=== PATIENT | female | born 1955 | race Caucasian/White ===

== ENCOUNTER 2017-09-07 13:56 | Emergency (ER) | payer OTHER ==
[~2017-09-07] VITALS: Ht 162.6 cm; Wt 136.1 kg
[~2017-09-07 13:56] MED LIST: CEPH500 PO; CLIN150 PO; CODGUAEL PO; ERYT333ERA PO; HYDACE5 PO; Norco 5-325 Ta1 EACH PO; PSEU120ER PO; TRAM50 PO
[2017-09-07] MEDS ORDERED: Norco 5-325 Ta1 EACH PO (14:37)
== END 2017-09-07 15:35 | disposition home or self-care (01) ==
LOC: ER 13:56
DX: S42.201A Unspecified fracture of upper end of right humerus, initial encounter for closed fracture (principal); W01.198A Fall on same level from slipping, tripping and stumbling with subsequent striking against other object, initial encounter
CPT/HCPCS: 29105; 73060; 96374; 96376; 99284; J3010

== ENCOUNTER 2018-01-15 11:35 | Emergency (ER) | payer OTHER ==
[~2018-01-15] VITALS: Ht 165.1 cm; Wt 145.2 kg
[~2018-01-15 11:35] MED LIST changes: +BALANCED B-100100 MG PO; +DICL75ER PO; +ERGO400 PO; +FURO20 PO; +Klor-Con 1010 MEQ PO; +OXYC5 PO; +TIZANIDINE HCL2 MG PO
[2018-01-15] MEDS ORDERED: Norco 5-325 Ta1 EACH PO (13:38)
== END 2018-01-15 13:52 | disposition home or self-care (01) ==
LOC: ER 11:35
DX: M54.32 Sciatica, left side (principal); F17.200 Nicotine dependence, unspecified, uncomplicated; Z88.6 Allergy status to analgesic agent; Z88.0 Allergy status to penicillin; Z79.899 Other long term (current) drug therapy
CPT/HCPCS: 96372; 99283; J1885

== ENCOUNTER 2019-06-03 14:22 | Observation (INO) | payer OTHER ==
[~2019-06-03] VITALS: Ht 162.6 cm; Wt 145.2 kg
[2019-06-03] MEDS ORDERED: LOVA20 PO (14:51)
[2019-06-03] MEDS ORDERED: DICL75ER PO (14:57)
[2019-06-03 16:03] LABS: BASOPHILS ABSOLUTE AUTO 0.07 K/mm3 (0.00-0.23); BASOPHILS PERCENT AUTO 1 % (0-2); EOSINOPHILS ABSOLUTE AUTO 0.11 K/mm3 (0.00-0.68); EOSINOPHILS PERCENT AUTO 1 % (0-6); Hematocrit 45.3 % (33.0-51.0); Hemoglobin 14.9 g/dL (11.5-16.0); IMMATURE GRAN ABSOLUTE AUTO 0.09 K/mm3 (0.00-0.10); IMMATURE GRAN PERCENT AUTO 1 % (0-1); LYMPHOCYTES ABSOLUTE AUTO 2.25 K/mm3 (0.84-5.20); LYMPHOCYTES PERCENT AUTO 20 % (21-46); MONOCYTES ABSOLUTE AUTO 0.78 K/mm3 (0.16-1.47); MONOCYTES PERCENT AUTO 7 % (4-13); Mean Corpuscular HGB 30.4 pg (26.0-34.0); Mean Corpuscular HGB Conc 32.9 g/dL (31.5-36.5); Mean Corpuscular Volume 92 fL (80-100); Mean Platelet Volume 9.9 fL (9.1-12.4); NEUTROPHILS ABSOLUTE AUTO 8.03 K/mm3 (1.96-9.15); NEUTROPHILS PERCENT AUTO 71 % (41-73); Platelet Count 186 K/mm3 (150-400); RDW Coefficient Variation 14.1 % (11.7-14.2); RDW Standard Deviation 47.7 fL (35.1-46.3); White Blood Cell Count 11.33 K/mm3 (4.00-11.30)
[2019-06-03 16:12] LABS: Source, Urine Clean Catch
[2019-06-03 16:20] LABS: Alanine Aminotransfer (ALT/SGP 38 U/L (12-78); Albumin, Blood 3.3 g/dL (3.4-5.0); Albumin/Globulin Ratio 0.8 (0.8-1.8); Alk Phos 87 U/L (50-136); Anion Gap 8 mmol/L (6-16); Aspartate Aminotrans (AST/SGOT 28 U/L (12-37); Bilirubin, Total 0.5 mg/dL (0.1-1.0); Blood Urea Nitrogen 10 mg/dL (8-24); Bun/Creatinine Ratio 15.8 (12.0-20.0); CO2, Blood 26 mmol/L (21-32); Calcium, Blood 8.6 mg/dL (8.5-10.1); Chloride, Blood 102 mmol/L (98-108); Creatinine, Blood 0.63 mg/dL (0.40-1.00); Globulin, Blood 3.9 g/dL (2.2-4.0); Glomerular Filtration Rate >60 (60-); Glucose, Blood 80 mg/dL (70-99); Potassium, Blood 3.6 mmol/L (3.5-5.5); Sodium, Blood 136 mmol/L (136-145); Total Protein, Blood 7.2 g/dL (6.4-8.2)
[2019-06-03 16:24] LABS: Appearance, Urine Hazy (Clear); Bilirubin, Urine Neg (Neg); Blood, Urine 2+ (Neg); Color, Urine Yellow (P-Yellow); Glucose Qualitative, Urine Neg (Neg); Ketones, Urine 4+ (Neg); Leukocyte Esterase, Urine Neg (Neg); Nitrite, Urine Neg (Neg); Protein, Urine 1+ (Neg); Urobilinogen, Urine NORM (Normal)
[2019-06-03 16:37] LABS: Bacteria Mod /hpf; Squamous Epithelial Cells Mod /hpf (Few)
--- NOTE | 2019-06-03 21:17 | NUR ---
RFA 20G SL, PATENT, SITE WNL.
--- NOTE | 2019-06-04 03:13 | NUR ---
63 YR OLD FEMALE WAS ADMITTED TO THE FLOOR LAST PM FROM THE ED WITH A DX OF NEAR PERFORATION OF BOWEL, SECONDARY TO ULCER LOCATED PROXIMAL DUODENUM. ALERT AND ORIENTED. ABLE TO AMBULATE UP AD LYDIA. PLACED ON CONTACT PRECAUTIONS UNTIL GI PANEL COMPLETED. MD TO CONSULATAION WAS DONE PRIOR TO ADMITTANCE TO UNIT AND IS CURRENTLY WATER/ICE CHIPS PO UNTIL 0800 FOR PROCEDURE. (SEE MD NOTATIONS). IVF OF NS AT 75 ML/HR INFUSING AND A PROTONIX DRIP AT 10 ML/HR INTO ANOTHER IV SITE OF RIGHT FA. ORIENTED TO USE OF CALL LIGHT. CALL LIGHT IN REACH.
[2019-06-04 05:14] LABS: Hemoglobin 12.7 g/dL (11.5-16.0); Mean Corpuscular HGB 30.5 pg (26.0-34.0); Mean Corpuscular HGB Conc 32.6 g/dL (31.5-36.5); Mean Corpuscular Volume 94 fL (80-100); Mean Platelet Volume 9.8 fL (9.1-12.4); Platelet Count 228 K/mm3 (150-400); RDW Coefficient Variation 14.1 % (11.7-14.2); RDW Standard Deviation 48.8 fL (35.1-46.3); Red Blood Cell Count 4.16 M/mm3 (3.80-5.20)
[2019-06-04 05:35] LABS: Alanine Aminotransfer (ALT/SGP 32 U/L (12-78); Albumin, Blood 2.8 g/dL (3.4-5.0); Albumin/Globulin Ratio 0.8 (0.8-1.8); Alk Phos 76 U/L (50-136); Anion Gap 5 mmol/L (6-16); Aspartate Aminotrans (AST/SGOT 24 U/L (12-37); Bilirubin, Total 0.6 mg/dL (0.1-1.0); Blood Urea Nitrogen 9 mg/dL (8-24); Bun/Creatinine Ratio 15.9 (12.0-20.0); CO2, Blood 27 mmol/L (21-32); Calcium, Blood 8.3 mg/dL (8.5-10.1); Chloride, Blood 107 mmol/L (98-108); Creatinine, Blood 0.57 mg/dL (0.40-1.00); Globulin, Blood 3.3 g/dL (2.2-4.0); Glomerular Filtration Rate >60 (60-); Glucose, Blood 80 mg/dL (70-99); Potassium, Blood 3.5 mmol/L (3.5-5.5); Sodium, Blood 139 mmol/L (136-145); Total Protein, Blood 6.1 g/dL (6.4-8.2)
--- NOTE | 2019-06-04 18:50 | NUR ---
SHIFT SUMMARY. A&OX4, INDEPENDENT IN ROOM, PLEASANT AND COOPERATIVE. PT DENIES PAIN, SOB, N/V. ENDOSCOPY CANCELLED TODAY, THIS RN WAS NOTIFIED BY DR. HILL THAT THE RISK FOR PERFORATION AND OTHER COMPLICATIONS WAS TOO GREAT PER DR. DEVRIES, PT NOTIFIED. PT STILL WITH NO BM TO SEND TO LAB. CONTINUES WITH PROTONIX GTT AND CLEAR LIQUIDS. FAMILY AT BEDSIDE INTERMITENTLY DURING SHIFT.
--- NOTE | 2019-06-05 07:26 | NUR ---
SHIFT SUMMARY PATIENT ALERT AND ORIENTED. BOTH IVS IN RIGHT ARM INFILTRATED. TWO NEW IVS PLACED IN PATIENT'S LEFT FOREARM AND FLUSHED. PATIENT HAD NO COMPLAINTS OF PAIN. BED IN LOWEST POSITION WITH WHEELS LOCKED. CALL LIGHT WITHIN REACH. REPORT GIVEN TO ONCOMING RN.
[2019-06-05] MEDS ORDERED: OMEP20ER (11:53)
[2019-06-05] MEDS ORDERED: OMEP20ER PO (11:54)
--- NOTE | 2019-06-05 12:17 | NUR ---
SHIFT SUMMARY. 1206 PT DISHCARGED HOME VIA PERSONAL VEHICLE ACCOMPANIED AND DRIVEN BY DAUGHTER. PT ESCORTED TO ENTRANCE VIA W/C BY [employer]. IV'S REMOVED, D/C PAPERWORK REVIEWED WITH PT AND COPY PROVIDED. PT DID NOT HAVE BM SINCE ADMIT. PT DENIED PAIN, SOB, N/V. TOLERATED CLEAR LIQUIDS WELL. NO NEW CHANGES OR CONCERNS.
== END 2019-06-05 12:06 | disposition home or self-care (01) ==
LOC: ER 14:22 → MEDS 14:23
PROVIDERS: Physician Assistant; ADMIT Internal Medicine
DX: K26.9 Duodenal ulcer, unspecified as acute or chronic, without hemorrhage or perforation (principal); K29.80 Duodenitis without bleeding; K29.70 Gastritis, unspecified, without bleeding; M19.90 Unspecified osteoarthritis, unspecified site; E78.5 Hyperlipidemia, unspecified; G47.30 Sleep apnea, unspecified; F17.210 Nicotine dependence, cigarettes, uncomplicated; Z79.899 Other long term (current) drug therapy; Z88.0 Allergy status to penicillin; Z88.6 Allergy status to analgesic agent; Z99.89 Dependence on other enabling machines and devices
CPT/HCPCS: 36415; 74177; 80053; 81001; 83690; 85025; 85027; 87086; 96361; 96365-59; 96366; 96367; 96375; 96376; 99285-25; C9113; G0378; J0696; J0744; J2405; J3010; J7030; Q9967

== ENCOUNTER 2019-07-06 18:02 | Observation (INO) | payer OTHER ==
[~2019-07-06] VITALS: Ht 162.6 cm; Wt 122.3 kg
[~2019-07-06 18:02] MED LIST changes: +LOVA20 PO; +OMEP20ER; +OMEP20ER PO
[2019-07-06] MEDS ORDERED: Voltaren100 GM TOP (18:13)
[2019-07-06 19:17] LABS: BASOPHILS ABSOLUTE AUTO 0.06 K/mm3 (0.00-0.23); BASOPHILS PERCENT AUTO 1 % (0-2); EOSINOPHILS ABSOLUTE AUTO 0.34 K/mm3 (0.00-0.68); EOSINOPHILS PERCENT AUTO 4 % (0-6); Hematocrit 40.3 % (33.0-51.0); Hemoglobin 13.2 g/dL (11.5-16.0); IMMATURE GRAN ABSOLUTE AUTO 0.06 K/mm3 (0.00-0.10); IMMATURE GRAN PERCENT AUTO 1 % (0-1); LYMPHOCYTES ABSOLUTE AUTO 2.24 K/mm3 (0.84-5.20); LYMPHOCYTES PERCENT AUTO 24 % (21-46); MONOCYTES ABSOLUTE AUTO 0.64 K/mm3 (0.16-1.47); MONOCYTES PERCENT AUTO 7 % (4-13); Mean Corpuscular HGB 30.4 pg (26.0-34.0); Mean Corpuscular HGB Conc 32.8 g/dL (31.5-36.5); Mean Corpuscular Volume 93 fL (80-100); Mean Platelet Volume 10.3 fL (9.1-12.4); NEUTROPHILS ABSOLUTE AUTO 6.12 K/mm3 (1.96-9.15); NEUTROPHILS PERCENT AUTO 65 % (41-73); Platelet Count 218 K/mm3 (150-400); RDW Coefficient Variation 14.5 % (11.7-14.2); RDW Standard Deviation 49.3 fL (35.1-46.3); Red Blood Cell Count 4.34 M/mm3 (3.80-5.20); White Blood Cell Count 9.46 K/mm3 (4.00-11.30)
[2019-07-06 19:38] LABS: Alanine Aminotransfer (ALT/SGP 19 U/L (12-78); Albumin, Blood 3.3 g/dL (3.4-5.0); Albumin/Globulin Ratio 0.9 (0.8-1.8); Alk Phos 97 U/L (50-136); Anion Gap 7 mmol/L (6-16); Aspartate Aminotrans (AST/SGOT 19 U/L (12-37); Bilirubin, Total 0.2 mg/dL (0.1-1.0); Blood Urea Nitrogen 12 mg/dL (8-24); CO2, Blood 26 mmol/L (21-32); Calcium, Blood 8.9 mg/dL (8.5-10.1); Chloride, Blood 109 mmol/L (98-108); Creatinine, Blood 0.63 mg/dL (0.40-1.00); Globulin, Blood 3.6 g/dL (2.2-4.0); Glomerular Filtration Rate >60 (60-); Glucose, Blood 111 mg/dL (70-99); Potassium, Blood 3.3 mmol/L (3.5-5.5); Sodium, Blood 142 mmol/L (136-145); Total Protein, Blood 6.9 g/dL (6.4-8.2)
[2019-07-06] MEDS ORDERED: DICL75ER PO (19:47)
--- NOTE | 2019-07-07 07:38 | NUR ---
RADIOLOGY DIRECTOR REPORT PT ADMIT FROM ER. SWELLING AND REDNESS ON R UPPER ARM. THIS AREA HAS BEEN MARKED IN THE ER AND HAS BEEN WITHIN THE MARKED LINES. DENIES PAIN, NAUSEA, SOB. INDEPENDENT IN ROOM. VSS. MRI THIS MORNING.
[2019-07-07 09:25] LABS: Hematocrit 43.6 % (33.0-51.0); Mean Corpuscular HGB 30.4 pg (26.0-34.0); Mean Corpuscular HGB Conc 32.1 g/dL (31.5-36.5); Mean Corpuscular Volume 95 fL (80-100); Platelet Count 226 K/mm3 (150-400); RDW Coefficient Variation 14.8 % (11.7-14.2); RDW Standard Deviation 51.7 fL (35.1-46.3); Red Blood Cell Count 4.61 M/mm3 (3.80-5.20); White Blood Cell Count 7.41 K/mm3 (4.00-11.30)
[2019-07-07 09:46] LABS: Anion Gap 7 mmol/L (6-16); Blood Urea Nitrogen 10 mg/dL (8-24); Bun/Creatinine Ratio 14.9 (12.0-20.0); CO2, Blood 28 mmol/L (21-32); Calcium, Blood 8.9 mg/dL (8.5-10.1); Chloride, Blood 108 mmol/L (98-108); Creatinine, Blood 0.67 mg/dL (0.40-1.00); Glomerular Filtration Rate >60 (60-); Glucose, Blood 92 mg/dL (70-99); Potassium, Blood 3.6 mmol/L (3.5-5.5); Sodium, Blood 143 mmol/L (136-145)
[2019-07-07] MEDS ORDERED: Vsl#3 Capsule1 EACH PO (16:53)
[2019-07-07] MEDS ORDERED: CLIN300 PO (16:53)
--- NOTE | 2019-07-07 18:03 | NUR ---
DISCHARGE SUMMARY PT DISCHARGED TO HOME. PT ALERT AND ORIENTED THROUGHOUT THIS SHIFT. IV REMOVED PRIOR TO DISCHARGE. PT INDEPENDENT IN ROOM PRIOR TO DISCHARGE. PT INDEPENDENT TO WHEELCHAIR THEN FROM WHEELCHAIR TO VEHICLE UPON DISCHARGE. PT PROVIDED WITH DISCHARGE INSTRUCIONS AND MEDICATION LIST PRIOR TO DISCHARGE. PT TRANSPORTED HOME BY DAUGHTER.
== END 2019-07-07 17:20 | disposition home or self-care (01) ==
LOC: ER 18:02 → MEDS 18:03
PROVIDERS: Physician Assistant; ADMIT Internal Medicine
DX: T85.698A Other mechanical complication of other specified internal prosthetic devices, implants and grafts, initial encounter (principal); S42.301K Unspecified fracture of shaft of humerus, right arm, subsequent encounter for fracture with nonunion; E87.2 Acidosis; E78.5 Hyperlipidemia, unspecified; I87.8 Other specified disorders of veins; K21.9 Gastro-esophageal reflux disease without esophagitis; E66.01 Morbid (severe) obesity due to excess calories; F17.210 Nicotine dependence, cigarettes, uncomplicated; Y83.1 Surgical operation with implant of artificial internal device as the cause of abnormal reaction of the patient, or of later complication, without mention of misadventure at the time of the procedure; Z79.1 Long term (current) use of non-steroidal anti-inflammatories (NSAID); Z88.6 Allergy status to analgesic agent; Z79.899 Other long term (current) drug therapy; Z87.81 Personal history of (healed) traumatic fracture; Z88.0 Allergy status to penicillin; Z79.2 Long term (current) use of antibiotics
CPT/HCPCS: 36415; 73060; 73200; 80048; 80053; 83605; 85025; 85027; 85651; 86141; 96365; 96366; 99284-25; J1956; J3370; J7050; J7120

== ENCOUNTER 2020-05-06 20:57 | Emergency (ER) | payer OTHER ==
[~2020-05-06] VITALS: Ht 162.6 cm; Wt 136.1 kg
[~2020-05-06 20:57] MED LIST changes: +CLIN300 PO; +Voltaren100 GM TOP; +Vsl#3 Capsule1 EACH PO
== END 2020-05-06 23:35 | disposition home or self-care (01) ==
LOC: ER 20:57
DX: S70.01XA Contusion of right hip, initial encounter (principal); S80.01XA Contusion of right knee, initial encounter; F17.210 Nicotine dependence, cigarettes, uncomplicated; Z79.899 Other long term (current) drug therapy; Z88.0 Allergy status to penicillin; Z88.6 Allergy status to analgesic agent; W18.30XA Fall on same level, unspecified, initial encounter; Y92.009 Unspecified place in unspecified non-institutional (private) residence as the place of occurrence of the external cause
CPT/HCPCS: 73030; 73502; 73562-RT; 99283-25; A9270

== ENCOUNTER 2023-11-26 14:08 | Emergency (ER) | payer OTHER ==
[~2023-11-26] VITALS: Ht 160 cm; Wt 136.1 kg
[2023-11-26 14:33] VITALS: BP 145/99
== END 2023-11-26 18:28 | disposition home or self-care (01) ==
LOC: ER 14:08
DX: S51.811A Laceration without foreign body of right forearm, initial encounter (principal); S80.01XA Contusion of right knee, initial encounter; W19.XXXA Unspecified fall, initial encounter; F17.210 Nicotine dependence, cigarettes, uncomplicated; Z79.899 Other long term (current) drug therapy; Z88.6 Allergy status to analgesic agent; Z88.0 Allergy status to penicillin
CPT/HCPCS: 73090; 73590; 99283-25

== ENCOUNTER → 2025-03-26 | Outpatient (CLI) | payer OTHER ==
[2025-03-26 18:33] LABS: BASOPHILS ABSOLUTE AUTO 0.06 K/mm3 (0.00-0.23); BASOPHILS PERCENT AUTO 1 % (0-2); EOSINOPHILS ABSOLUTE AUTO 0.14 K/mm3 (0.00-0.68); EOSINOPHILS PERCENT AUTO 2 % (0-6); Hematocrit 43.8 % (33.0-51.0); Hemoglobin 13.9 g/dL (11.5-16.0); IMMATURE GRAN ABSOLUTE AUTO 0.04 K/mm3 (0.00-0.10); IMMATURE GRAN PERCENT AUTO 1 % (0-1); LYMPHOCYTES ABSOLUTE AUTO 2.70 K/mm3 (0.84-5.20); LYMPHOCYTES PERCENT AUTO 33 % (21-46); MONOCYTES ABSOLUTE AUTO 0.46 K/mm3 (0.16-1.47); MONOCYTES PERCENT AUTO 6 % (4-13); Mean Corpuscular HGB Conc 31.7 g/dL (31.5-36.5); Mean Corpuscular Volume 93 fL (80-100); NEUTROPHILS ABSOLUTE AUTO 4.83 K/mm3 (1.96-9.15); NEUTROPHILS PERCENT AUTO 59 % (41-73); NRBC ABSOLUTE 0.00 K/mm3 (0.00-0.02); NRBC Auto 0.0 /100 WBC (0.0-0.2); Platelet Count 234 K/mm3 (150-400); RDW Coefficient Variation 14.4 % (11.7-14.2); RDW Standard Deviation 49.2 fL (35.1-46.3)
[2025-03-26 19:27] LABS: Alanine Aminotransfer (ALT/SGP 28 U/L (12-78); Albumin, Blood 4.1 g/dL (3.4-5.0); Albumin/Globulin Ratio 1.1 (0.8-1.8); Anion Gap 9 mmol/L (3-11); Aspartate Aminotrans (AST/SGOT 21 U/L (12-37); Bilirubin, Total 0.6 mg/dL (0.1-1.0); Blood Urea Nitrogen 15 mg/dL (8-24); CHOL/HDL RATIO 2.7; CO2, Blood 29 mmol/L (21-32); Calcium, Blood 10.1 mg/dL (8.5-10.1); Chloride, Blood 103 mmol/L (98-108); Cholesterol 166 mg/dL (50-200); Creatinine, Blood 0.64 mg/dL (0.40-1.00); Globulin, Blood 3.6 g/dL (2.2-4.0); Glucose, Blood 106 mg/dL (70-99); HDL Cholesterol 62 mg/dL (>39); LDL/HDL RATIO 1.0; Low Density Lipoprotein Chol 63 mg/dL (0-110); Potassium, Blood 3.8 mmol/L (3.5-5.5); Sodium, Blood 137 mmol/L (136-145); Thyroid Stimulating Hormone 1.960 uIU/mL (0.360-4.800); Total Protein, Blood 7.7 g/dL (6.4-8.2); Triglycerides 203 mg/dL (30-160); Very Low Density Lipoprot Chol 40 mg/dL (6-32)
== END | disposition home or self-care (01) ==
LOC: LAB SHORT 17:26 → LAB 17:26
PROVIDERS: Nurse Practitioner Family
DX: E78.2 Mixed hyperlipidemia (principal); E55.9 Vitamin D deficiency, unspecified; E66.01 Morbid (severe) obesity due to excess calories; R73.09 Other abnormal glucose
CPT/HCPCS: 80053; 80061; 82306; 83036; 84443; 85025